=== PATIENT | male | born 1980 | race Caucasian/White ===

== ENCOUNTER 2018-02-01 08:13 | Emergency (ER) | payer BC, OTHER ==
[2018-02-01] MEDS ORDERED: Ondansetron ODT 8 MG TAB ONE (08:42)
[2018-02-01] MEDS ORDERED: Ketorolac Tromethamine 60 MG/2 ML VIAL ONE (08:42)
== END 2018-02-01 11:58 | disposition home or self-care (01) ==
LOC: ERS 08:13
DX: R10.9 Unspecified abdominal pain (principal); Z71.6 Tobacco abuse counseling; F17.220 Nicotine dependence, chewing tobacco, uncomplicated
CPT/HCPCS: 96372; 99406; J1885

== ENCOUNTER 2022-02-17 12:24 | Emergency (ER) | payer OTHER, SELFPAY | END 2022-02-17 13:42 | disposition home or self-care (01) | LOC: ERS 12:24 | DX: S39.012A Strain of muscle, fascia and tendon of lower back, initial encounter (principal); X50.1XXA Overexertion from prolonged static or awkward postures, initial encounter; X50.0XXA Overexertion from strenuous movement or load, initial encounter | CPT/HCPCS: 99282 ==

== ENCOUNTER 2022-02-22 11:14 | Emergency (ER) | payer OTHER, SELFPAY | END 2022-02-22 14:48 | disposition home or self-care (01) | LOC: ERS 11:14 | DX: M54.50 Low back pain, unspecified (principal); K04.7 Periapical abscess without sinus; M62.838 Other muscle spasm | CPT/HCPCS: 99283 ==